=== PATIENT | female | born 1965 | race Caucasian/White ===

== ENCOUNTER 2022-12-13 14:41 | Emergency (ER) | payer OTHER, SELFPAY ==
--- NOTE | ~2022-12-13 | XR_ITS ---
Left foot Technique: AP, oblique, and lateral views were obtained. Clinical History: Patient for wound first interspace Findings: No acute fracture or dislocation is seen. 2 orthopedic screws are present in the first meta tarsal, likely related to prior osteotomy.. Joint spaces are preserved without erosive or degenerativ e change. There is mild soft tissue swelling at the forefoot. Impression: Mild soft tissue swelling at the forefoot. No acute osseous or articular abnormality. Probable prior first metatarsal osteotomy and bunionectomy, with 2 orthopedic screws in the first met atarsal. Reviewed, dictated and finalized at location . Impression: Mild soft tissue swelling at the forefoot. No acute osseous or articular abnormality. Probable prior first metatarsal osteotomy and bunionectomy, with 2 orthopedic s crews in the first metatarsal.
--- NOTE | 2022-12-13 15:13 | ED.WOUNDLAC ---
HPI - Wound/Laceration General Chief Complaint: Wound/Laceration Stated Complaint: Left foot stabbed with pitcfork Time Seen by Provider: 12/13/22 15:13 Source: patient Mode of arrival: ambulatory Limitations: no limitations History of Present Illness HPI narrative: 57-year-old female presented for complaint of laceration to top of the left foot after injury just prior to arrival. She states she stabbed herself in the foot while using the pitchfork to move branches, she lost her footing and the pitchfork slipped cutting the top of the foot. Rates pain 8/10. Did not clean site BENDER HAND. Unsure of tetanus status. Denies numbness, tingling or weakness of the foot. Reports normal range of motion to foot and toes. Related Data Home Medications Medication Instructions Recorded Confirmed estradiol 1 mg tablet 1 mg PO DIRECTED 12/13/22 12/13/22 Allergies Allergy/AdvReac Type Severity Reaction Status Date / Time No Known Allergies Allergy Verified 12/13/22 15:03 Review of Systems Review of Systems: CONSTITUTIONAL: Denies body aches, fever, chills, or sweats. EYES: Denies visual changes, redness, or discharge. CARDIOVASCULAR: Denies chest pain, palpitations, or edema. RESPIRATORY: Denies cough or dyspnea. GASTROINTESTINAL: Denies abdominal pain, nausea, vomiting, or diarrhea. SKIN: Per HPI MUSCULOSKELETAL: Denies back pain, joint pain, or myalgia. NEUROLOGIC: Denies headache, numbness, tingling, or weakness. [facility] Past Medical History Medical History (Updated 12/13/22 @ 15:52 by Janina Alonzo, ESTEVAN) No pertinent past medical history Comments At time of signature, I have reviewed and agree with nursing past medical, surgical, social and family history unless otherwise noted. Please see nursing chart for further information. There is no relevant family history pertinent to the presenting complaint Exam Narrative: GENERAL: Well-appearing EYES: conjunctivae clear, and EOMI. ENT: Mucous membranes moist. Oropharynx without edema, erythema or lesions. NECK: Supple. No lymphadenopathy CHEST: Clear to auscultation. HEART: Regular rate and rhythm. SKIN: Warm, dry. Left dorsal foot with 0.75cm linear laceration over distal 1st metatarsal, mild active bleeding. EXT: Left foot with normal strength and sensation, PPP, full ROM to toes. Cap refill <3seconds. NEURO: Alert and oriented x3. Course Course Emergency Course: Patient is aware of diagnosis, understands and agrees to treatment plan. Anticipatory guidance given. Patient agrees to follow-up as directed and is aware of reasons to seek care at the emergency department. Portions of this record may have been created with voice recognition software Level of Care: Express Care Visit Vital Signs Vital signs: Vital Signs Temperature 97.7 F 12/13/22 15:28 Pulse Rate 98 12/13/22 15:28 Respiratory Rate 16 12/13/22 15:28 Blood Pressure 114/85 12/13/22 15:28 Pulse Oximetry 99 12/13/22 15:28 Temperature 97.7 F 12/13/22 15:28 Pulse Rate 98 12/13/22 15:28 Respiratory Rate 16 12/13/22 15:28 Blood Pressure 114/85 12/13/22 15:28 Pulse Oximetry 99 12/13/22 15:28 Reviewed Procedures Laceration Left foot: Date: 12/13/22 Size (cm): 0.75 Description: linear and clean Depth: simple, single layer Local Anesthetic: lidocaine 1% Amount of anesthesia used (mL): 4 Pre-repair: wound explored and irrigated (80mL) ====== Skin Level ====== Skin layer closed with: nylon Size (cm): 5-0 Number of sutures: 3 Technique: simple, interrupted ====== Subcutaneous Layer ====== ====== Muscle Layer ====== ====== Tendon Layer ====== Dressing: The procedure and its alternatives were reviewed with patient. Risks were reviewed with patient including infection and damage to nearby structures. Patient provided verbal informed consent. The jude
[2022-12-13 15:28] VITALS: BP 114/85; PULSE 98; RESP 16; TEMP 36.5; O2SAT 99
[2022-12-13] MEDS: TETANUS,DIPHTHERIA,AC PERTUSSIS ADULT (0.5 ML) BOOSTRIX IM (15:28)
== END 2022-12-13 15:50 | disposition home or self-care (01) ==
PROVIDERS: Emergency Provider Nurse Practitioner Family; PCP Physician Assistant
DX: S91.312A Laceration without foreign body, left foot, initial encounter (principal); Z23 Encounter for immunization; W26.8XXA Contact with other sharp object(s), not elsewhere classified, initial encounter
CPT/HCPCS: 12001; 73630; 90471; 90715; 99203; G0463

== ENCOUNTER 2024-01-25 16:34 | Emergency (ER) | payer OTHER, SELFPAY ==
--- NOTE | ~2024-01-25 | XR_ITS ---
EXAM: XR shoulder LT min 2V DATE: 01/25/2024 18:27 HISTORY: left shoulder pain, fall limited rom . COMPARISON: None available. FINDINGS: Decreased mineralization. No fracture or dislocation. No lytic or blastic lesion. Mild deg enerative change at the AC joint and glenohumeral joint. No erosion or periosteal change. Soft tissue s within normal limits. IMPRESSION: No acute osseous finding the left shoulder. Reviewed, dictated and finalized at location K.
--- NOTE | ~2024-01-25 | XR_ITS ---
EXAM: XR hip BI 2V w AP pelvis DATE: 01/25/2024 18:27 HISTORY: fall pain lt hip groin and posterior pelvis . COMPARISON: X-ray sacroiliac joints 04/26/2015. FINDINGS: Normal mineralization. No fracture or dislocation. No lytic or blastic lesion. Mild degene rative changes in the lumbar spine and bilateral hips. No erosion or periosteal change. Soft tissues within normal limits. IMPRESSION: No acute osseous finding in the pelvis or bilateral hips. Reviewed, dictated and finalized at location K.
[2024-01-25 16:42] VITALS: BP 125/79; PULSE 90; RESP 16; TEMP 36.9; O2SAT 98
--- NOTE | 2024-01-25 18:02 | ED.GENADULT ---
HPI - General Adult General Chief complaint: Extremity Injury, Lower Stated complaint: WC left side pain Source: patient Mode of arrival: ambulatory Limitations: no limitations History of Present Illness HPI narrative: Patient presents for evaluation after experiencing a fall at 9:30 a.m. this morning. She was getting out of her car when she tripped over curb. She landed on her right hip. She did hit her head. No loss of consciousness. She is not on blood thinners. She now reports pain in both hips, and her left shoulder. She cannot provide me with a numerical rating the pain but states that is ?sharp?. No radicular component. She has not taken any medication to assist with symptoms. Related Data Home Medications Medication Instructions Recorded Confirmed estradiol 1 mg tablet 1 mg PO DIRECTED 12/13/22 12/13/22 Otc Vitamins 01/25/24 atorvastatin 20 mg tablet mg 01/25/24 Allergies Allergy/AdvReac Type Severity Reaction Status Date / Time No Known Allergies Allergy Verified 12/13/22 15:03 Review of Systems Review of Systems: CONSTITUTIONAL: Denies fever, chills, or sweats. EYES: Denies visual changes, redness, or discharge. ENT: Denies rhinorrhea, congestion, sore throat, or otalgia. CARDIOVASCULAR: Denies chest pain, palpitations, or edema. RESPIRATORY: Denies cough or dyspnea. GASTROINTESTINAL: Denies abdominal pain, nausea, vomiting, or diarrhea. GENITOURINARY: Denies dysuria or hematuria. SKIN: Denies rash or itching. MUSCULOSKELETAL: Reports left shoulder pain and bilateral hip pain. NEUROLOGIC: Denies headache, numbness, dizziness, or weakness. PSYCHIATRIC: Denies anxiety or depression. [facility] Past Medical History Medical History No pertinent past medical history Surgical History Surgical History History of carpal tunnel release History of exploratory laparotomy History of hysterectomy Family History Family History Mother Family history non-contributory Social History Social History Smoking packs per day: 0.5 Smoking cigarettes per day: 10.0 Smoking status: Current every day smoker Tobacco type: cigarettes and e-cigarettes/vaping Alcohol intake: current Drinks per week: 21 Substance use: never Living arrangements: with family Gender identity (if verbalized by the patient): Female Spiritual care concerns: No Exam Narrative: GENERAL: Well-appearing, well-nourished, and in no acute distress. HEAD: Normocephalic, atraumatic. EYES: PERRLA and EOMI. ENT: Nares clear, no rhinorrhea or epistaxis. Mucous membranes moist. Oropharynx without tonsillar hypertrophy exudate or other lesions. Bilateral TMs pearly montero nonbulging NECK: Supple. No adenopathy or masses. No carotid bruits or JVD CHEST: Clear to auscultation. No respiratory distress. No wheezes rales or rhonchi HEART: Regular rate and rhythm. No murmur heard. Normal peripheral pulses. ABDOMEN: Soft, nontender, nondistended, normal active bowel sounds. EXTREMITIES: Decreased active range of motion of left shoulder. She is tender in the left shoulder without obvious deformity. 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 She is tender over the left lateral hip pain in the left buttock. She will not allow me to palpate her right hip. SKIN: Warm, dry, no rash. NEURO: No focal deficits. Alert and oriented x3. PSYCH: Normal mood and affect. Course Course Emergency Course: This is a 58-year-old female who presented for evaluation of pain in the left shoulder bilateral hips following a fall earlier today. X-rays were negative for fracture. Exam is consistent with bilateral hip contusions in left shoulder strain. Recommend Lidoderm and diclofenac. These were sent to her phar
[2024-01-25] MEDS: KETOROLAC (*BKC) 60 MG/2 ML VIAL IM (18:30)
== END 2024-01-25 18:50 | disposition home or self-care (01) ==
PROVIDERS: Emergency Provider Nurse Practitioner; PCP Physician Assistant
DX: S46.912A Strain of unspecified muscle, fascia and tendon at shoulder and upper arm level, left arm, initial encounter (principal); S70.02XA Contusion of left hip, initial encounter; S70.01XA Contusion of right hip, initial encounter; W18.09XA Striking against other object with subsequent fall, initial encounter; F17.210 Nicotine dependence, cigarettes, uncomplicated; F17.290 Nicotine dependence, other tobacco product, uncomplicated
CPT/HCPCS: 73030; 73521; 96372; 99214; G0463; J1885